=== PATIENT | female | born 1965 | race Caucasian/White ===

== ENCOUNTER 2022-08-08 00:03 | Emergency (ER) | payer OTHER ==
[~2022-08-08] VITALS: Ht 172.7 cm; Wt 119.3 kg
--- NOTE | 2022-08-08 00:19 | NUR ---
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 Patient is alert and oriented at this time, appears drowsy, informed of plan of care, assisted into gown, placed on monitor, bedpan and in restraints per MD order because patient wants to leave. Patient is aware of need for urine, side rails up will continue to monitor.
[2022-08-08] MEDS ORDERED: CITA10TA17 PO (00:24)
[2022-08-08] MEDS ORDERED: LORA-258 PO (00:24)
--- NOTE | 2022-08-08 00:29 | NUR ---
Patient dosing off, remains easy to arouse, states she took 5 tablets of ativan and was not trying to harm herself. Police at bedside, lab at bedside , COVID swab done and sent to lab.
[2022-08-08 00:37] LABS: HEMATOCRIT 43.7 % (31.2-41.9); MEAN CORPUSCULAR HEMOGLOBIN 29.7 uug (24.7-32.8); MEAN CORPUSCULAR VOLUME 89.3 fL (75.5-95.3); PLATELET COUNT (AUTO) 307 K/uL (179-408)
[2022-08-08 00:48] LABS: CARBON DIOXIDE 24 mmol/L (21-32); CHLORIDE 101 mmol/L (98-107); CREATININE 0.6 mg/dL (0.6-1.3); GLUCOSE 143 mg/dL (74-106); POTASSIUM 2.9 mmol/L (3.5-5.1); UREA NITROGEN, BLOOD 9 mg/dL (7-18)
[2022-08-08 00:53] LABS: ACETAMINOPHEN < 10.0 ug/mL (10-30); ALANINE AMINOTRANSFERASE 42 U/L (14-59); ALKALINE PHOSPHATASE 134 U/L (50-136); ASPARTATE AMINOTRANSFERASE 14 U/L (15-37); BILIRUBIN,DIRECT 0.1 mg/dL (0.0-0.2); BILIRUBIN,TOTAL 0.4 mg/dL (0.2-1.0); TOTAL PROTEIN, SERUM 8.2 g/dL (6.4-8.2)
[2022-08-08 00:58] LABS: THYROID STIMULATING HORMONE 8.342 mIU/mL (0.358-3.740)
[2022-08-08 01:07] LABS: ETHANOL 166 MG/DL (0-0)
[2022-08-08] MEDS ORDERED: IV 0.9% SODIUM CHLORID+ 20 KCL 1,000 ML IV ONE (01:15)
--- NOTE | 2022-08-08 01:19 | NUR ---
Patient resting, O2 sat 87% on room air, placed on 3l NC at this time.
[2022-08-08] MEDS ORDERED: IV 0.9% SODIUM CHLORID+ 20 KCL 0 ML ONE (01:37)
[2022-08-08] MEDS ORDERED: IV 0.9% SODIUM CHLORID+ 20 KCL 1,000 ML ONE (01:39)
--- NOTE | 2022-08-08 01:50 | NUR ---
IVF infusing as per order, #20g established in left ac, positioned for comfort.
--- NOTE | 2022-08-08 02:11 | NUR ---
Mat morley in [facility] - 08/08/22 at 0218 by SAI Restraints removed at this time, patient on bedpan for utine collection.
--- NOTE | 2022-08-08 02:18 | NUR ---
Restraints removed at this time, patient on bedpan for urine collection.
--- NOTE | 2022-08-08 02:19 | NUR ---
at bedside waiting to talk with the ER MD.
[2022-08-08 04:05] LABS: *BILIRUBIN,URIN NEGATIVE (NEGATIVE); *CLARITY,URINE CLEAR (CLEAR); *COLOR,URINE YELLOW (YELLOW); *KETONES,URINE NEGATIVE (NEGATIVE); *UROBILINOGEN,URINE 0.2 E.U./dl (NORMAL); LEUKOCYTE ESTERASE ,URINE NEGATIVE (NEGATIVE); NITRITE, URINE NEGATIVE (NEGATIVE); UGLUCOSE NEGATIVE (NEGATIVE)
--- NOTE | 2022-08-08 04:07 | NUR ---
Patient awake, cath for ua at this time.
[2022-08-08 04:10] LABS: *BLOOD, URINE TRACE (NEGATIVE)
[2022-08-08 04:27] LABS: *AMPHETAMINE, URINE NEGATIVE (NEGATIVE); *CANNABINOID, URINE NEGATIVE (NEGATIVE); *COCCAINE, URINE NEGATIVE (NEGATIVE); *PHENCYCLIDINE SCREEN,URINE NEGATIVE (NEGATIVE)
[2022-08-08 04:33] LABS: RBC,URINE 0-3 /HPF (0-3)
[2022-08-08 04:34] LABS: BACTERIA,URINE NONE SEEN /HPF (NONE SEEN); SQUAMOUS EPITHELIAL CELL,UR FEW /HPF (NONE SEEN); WBC,URINE NONE SEEN /HPF (0-3)
--- NOTE | 2022-08-08 05:44 | NUR ---
Remains easy to arouse, no voiced c/o pain or discomfort at this time. IVF continues via pump as per order.
--- NOTE | 2022-08-08 07:01 | NUR ---
Pt. asleep at this time VSS
--- NOTE | 2022-08-08 08:08 | NUR ---
Called [facility], [facility] [place]. currently talking to Nick from [facility]
--- NOTE | 2022-08-08 08:54 | NUR ---
Dr. Gutierrez currently talking to Altaf JAY at this time
[2022-08-08] MEDS ORDERED: POTASSIUM CHLORIDE 20 MEQ TAB.PRT.SR PO ONE (09:00)
[2022-08-08] MEDS ORDERED: POTASSIUM CHLORIDE 20 MEQ TAB.PRT.SR ONE (09:45)
--- NOTE | 2022-08-08 10:45 | NUR ---
Autumn from [facility] called and would like to have the latest ETOH. Labs collected
[2022-08-08 11:13] LABS: ETHANOL < 3 MG/DL (0-0)
--- NOTE | 2022-08-08 11:45 | NUR ---
Pt eloped from facility. Pt not in ER room 3, Per ER admitting dept pt was seen walking out of the ER with her .
--- NOTE | 2022-08-08 13:00 | NUR ---
Called [facility] non-emergency line and reported incident to [id number] who stated she will dispatch a unit to the pt's home address to check on her.
--- NOTE | 2022-08-08 15:00 | NUR ---
Pt brought back to ER by [facility] PET team. Pt ambulatory to room 3. Please see [id number].
== END 2022-08-08 11:47 | disposition left against medical advice (07) ==
LOC: ER 00:03
DX: T42.4X2A Poisoning by benzodiazepines, intentional self-harm, initial encounter (principal); R40.0 Somnolence; Y92.039 Unspecified place in apartment as the place of occurrence of the external cause; Z20.822 Contact with and (suspected) exposure to COVID-19; F41.9 Anxiety disorder, unspecified; F32.A Depression, unspecified; E87.6 Hypokalemia; Z72.0 Tobacco use; F10.129 Alcohol abuse with intoxication, unspecified; Y90.6 Blood alcohol level of 120-199 mg/100 ml; R45.851 Suicidal ideations
CPT/HCPCS: 36415; 84443; 85025; A4663; C1758; G0480

== ENCOUNTER 2022-08-08 15:01 | Emergency (ER) | payer OTHER ==
[~2022-08-08] VITALS: Ht 172.7 cm; Wt 119.3 kg
[~2022-08-08 15:01] MED LIST: CITA10TA17 PO; LORA-258 PO
--- NOTE | 2022-08-08 15:01 | NUR ---
Pt ambulatory into ER with [facility] PET team. Pt was brought to ER last night by EMS and placed on 5150 HOLD by [employer]. Pt eloped from this ER earlier today. Pt arrives A/Ox4, pt states she was intoxicated last night and does not remember what statements she made. She denies any suicidal ideation at this time. Security is at door in room 3 for 1:1 observation.
--- NOTE | 2022-08-08 15:21 | NUR ---
Altaf JAY currently talking to MD Gutierrez
--- NOTE | 2022-08-08 15:27 | NUR ---
MD Solitario called and ask for VS. currently 110/73,83,18,97,100%
--- NOTE | 2022-08-08 18:18 | NUR ---
F/U [facility] p: [phone], f: [phone] Talked to Vilma and said they are still working on finding this patient a bed. will call back once they have one
--- NOTE | 2022-08-08 19:33 | NUR ---
Patient resting in bed, updated on plan of care, aware of hold status and awaiting bed assignment at [facility]. No s/s of any distress noted, will continue to monitor.
--- NOTE | 2022-08-08 21:15 | NUR ---
[facility] called back with transfer info. Patient will be going to [facility]. Accepting MD is DR Iqbal. Call for report is . 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
--- NOTE | 2022-08-08 21:19 | NUR ---
[facility], patient remains stable for transport.
--- NOTE | 2022-08-08 21:31 | NUR ---
Report given to accepting nurse Cathy at this time, patient remains stable for transfer.
--- NOTE | 2022-08-08 22:38 | NUR ---
Patient continues to rest with c/o.
== END 2022-08-08 23:06 ==
LOC: ER 15:02
DX: F99 Mental disorder, not otherwise specified (principal); R45.851 Suicidal ideations
CPT/HCPCS: A4663